=== PATIENT | female | born 1955 ===

== ENCOUNTER 2017-07-31 15:40 | Emergency (ER) | payer BC, MEDICAID, OTHER ==
[2017-07-31 16:22] VITALS: BP 161/82; PULSE 65; RESP 18; TEMP 98.3; O2SAT 95
[2017-07-31] MEDS ORDERED: Sodium Chloride 0.9% 1,000 ML IV STA (16:41)
--- NOTE | 2017-07-31 17:23 | RAD ---
HISTORY: Constipation COMPARISON: No prior. FINDINGS: BOWEL: Normal. No obstruction. No free air. BONES: Orthopedic hardware related to prior lower lumbar and sacral laminectomy and fusion. OTHER FINDINGS: None. IMPRESSION: No significant or acute findings to account for/ related to the clinical presentation.
[2017-07-31 17:28] LABS: BASO % 0.1 % (0.0-2.0); LYMPH # 0.6 K/uL (1.0-4.3); LYMPH % 4.6 % (20.0-40.0); MEAN CELL VOLUME 88.5 fl (81.0-99.0); MEAN CORPUSCULAR HEMOGLOBIN 29.6 pg (27.0-31.0); MEAN CORPUSCULAR HGB CONC 33.4 g/dL (33.0-37.0); MEAN PLATELET VOLUME 7.4 fl (7.2-11.7); MONO # 0.6 K/uL (0.0-0.8); MONO % 4.4 % (0.0-10.0); NEUT # 11.7 K/uL (1.8-7.0); NEUT % 90.9 % (50.0-75.0); PLATELET COUNT 259 K/uL (130-400); RBC 4.39 Mil/uL (3.80-5.20); RED CELL DISTRIBUTION WIDTH 13.4 % (11.5-14.5); WHITE BLOOD COUNT 12.9 K/uL (4.8-10.8)
[2017-07-31 17:46] LABS: ALB/GLOB RATIO 1.2 (1.0-2.1); ALBUMIN 4.2 g/dL (3.5-5.0); ALT/SGPT 38 U/L (9-52); AST/SGOT 37 U/L (14-36); BLOOD UREA NITROGEN 11 mg/dl (7-17); CALCIUM 9.4 mg/dL (8.4-10.2); GFR AFRICAN-AMERICAN > 60; GFR NON-AFRICAN AMERICAN > 60
--- NOTE | 2017-07-31 20:07 | ED PDOC ---
HPI: Abdomen Time Seen by Provider: 07/31/17 16:00 Chief Complaint (Nursing): Abdominal Pain Chief Complaint (Provider): Abdominal pain, small bowel movements History Per: Patient History/Exam Limitations: no limitations Additional Complaint(s): Pt has been taking oxycodone for back pain. PT reports small BM and passing gas. Past Medical History Reviewed: Historical Data, Nursing Documentation, Vital Signs Vital Signs: Last Vital Signs Temp 98.3 F 07/31/17 16:05 Pulse 65 07/31/17 16:05 Resp 18 07/31/17 16:05 BP 161/82 H 07/31/17 16:05 Pulse Ox 95 07/31/17 20:08 - Medical History PMH: CAD, HTN - Surgical History Surgical History: Back Surgery (07/20/17- for "damaged discs and hernia repair"), CABG - Family History Family History: States: Unknown Family Hx - Immunization History Hx Tetanus Toxoid Vaccination: No Hx Influenza Vaccination: No Hx Pneumococcal Vaccination: No - Home Medications Home Medications: Ambulatory Orders Medication Instructions Recorded Losartan [Cozaar] 50 mg PO DAILY 11/03/16 Polyethylene Glycol 3350 [Miralax] 17 gm PO DAILY PRN #1 ml 11/03/16 Docusate [Colace] 100 mg PO Q12H PRN #10 cap 07/31/17 - Allergies Allergies/Adverse Reactions: Allergies Allergy/AdvReac Type Severity Reaction Status Date / Time No Known Allergies Allergy Verified 08/19/15 08:24 Review of Systems ROS Statement: Except As Marked, All Systems Reviewed And Found Negative Constitutional: Negative for: Fever, Chills Gastrointestinal: Positive for: Abdominal Pain, Constipation Physical Exam - Reviewed Nursing Documentation Reviewed: Yes Vital Signs Reviewed: Yes - Physical Exam Appears: Positive for: Well, Non-toxic, No Acute Distress Head Exam: Positive for: ATRAUMATIC, NORMAL INSPECTION, NORMOCEPHALIC Skin: Positive for: Normal Color, Warm, DRY Eye Exam: Positive for: Normal appearance ENT: Positive for: Normal ENT Inspection Neck: Positive for: Normal, Painless ROM Cardiovascular/Chest: Positive for: Regular Rate, Rhythm Respiratory: Positive for: Normal Breath Sounds. Negative for: Accessory Muscle Use, Respiratory Distress Gastrointestinal/Abdominal: Positive for: Normal Exam, Bowel Sounds, Soft. Negative for: Tenderness Back: Positive for: Normal Inspection Extremity: Positive for: Normal ROM Neurologic/Psych: Positive for: Alert, Oriented - Laboratory Results Result Diagrams: 07/31/17 17:23 07/31/17 17:23 - ECG O2 Sat by Pulse Oximetry: 95 Medical Decision Making Medical Decision Making: Case discussed with Dr. Lemons. Pt reports feeling better after BM/fleet in ER. Disposition - Clinical Impression Clinical Impression: Constipation - Patient ED Disposition Is Patient to be Admitted: No Counseled Patient/Family Regarding: Diagnosis, Need For Followup - Disposition Disposition: Routine/Home Disposition Time: 20:05 Condition: STABLE Additional Instructions: Lots of fluids. Stool softener as needed. Please return for any concerns. Please follow-up with PMD. Prescriptions: Docusate [Colace] 100 mg PO Q12H PRN #10 cap PRN Reason: Constipation Instructions: Constipation in Adults Forms: [facility] (Slovenian) Print Language: GRENADIAN
[2017-07-31 20:20] LABS: BANDS 4 % (0-2); BASOPHIL 1 % (0-2); EOSINOPHIL 1 % (0-7); LYMPHOCYTE 6 % (20-50); MONOCYTE 5 % (0-10); NEUTROPHIL 83 % (42-75); PLATELET ESTIMATE NORMAL (NORMAL); TOTAL CELLS COUNTED 100
== END 2017-07-31 20:50 | disposition home or self-care (01) ==
LOC: H.ER 15:40
DX: K59.00 Constipation, unspecified (principal); I10 Essential (primary) hypertension; I25.10 Atherosclerotic heart disease of native coronary artery without angina pectoris
CPT/HCPCS: 74022; 80053; 85025; 96361; 96374; 99283; J1885; J7040